=== PATIENT | male | born 1990 | race Caucasian/White ===

== ENCOUNTER 2019-11-23 19:08 | Emergency (ER) | payer OTHER ==
[~2019-11-23] VITALS: Ht 177.8 cm; Wt 78.3 kg
--- NOTE | 2019-11-23 19:14 | PHYS DOC ---
Adult General Chief Complaint Chief Complaint: NOSEBLEED.." I got elbow into my nose about 5 hrs ago... and a nose bleed....they made me come and get checked out..." HPI HPI Patient is a 29 year old male [employer] inmate who presents with above hx and complaints of epistaxis. Patient denies any loss of consciousness. Patient states bleeding has been relatively stable. Patient denies any history coagulopathy. Patient denies any history immunosuppression. Patient states urinary nose that is broken. Declines x-rays. Patient declines CT. Patient states he only came because [facility] staff told him he must be evaluated. Review of Systems Review of Systems Constitutional: Denies fever or chills [] Eyes: Denies change in visual acuity, redness, or eye pain [] HENT: Complains of nasal fracture and nasal congestion right black eye Respiratory: Denies cough or shortness of breath [] Cardiovascular: No additional information not addressed in HPI [] GI: Denies abdominal pain, nausea, vomiting, bloody stools or diarrhea [] : Denies dysuria or hematuria [] Musculoskeletal: Denies back pain or joint pain [] Integument: Denies rash or skin lesions [] Neurologic: Denies headache, focal weakness or sensory changes [] Endocrine: Denies polyuria or polydipsia [] All other systems were reviewed and found to be within normal limits, except as documented in this note. Family History Family History Noncontributory Current Medications Current Medications See nursing for home meds Allergies Allergies No known drug allergies Physical Exam Physical Exam Constitutional: Well developed, well nourished, no acute distress, non-toxic appearance. [] HENT: Normocephalic, appears to have a fractured nose, bilateral external ears normal, oropharynx moist, no oral exudates, nose bleeding is stabilized. No septal hematoma. No bleeding in pharynx Eyes: PERRLA, EOMI, conjunctiva normal, no discharge. []Ecchymosis under right eye Neck: Normal range of motion, no tenderness, supple, no stridor. [] Cardiovascular:Heart rate regular rhythm, no murmur [] Lungs & Thorax: Bilateral breath sounds with apex with few scattered wheezes on auscultation [] Abdomen: Bowel sounds normal, soft, no tenderness, no masses, no pulsatile masses. [] Skin: Warm, dry, no erythema, no rash. [] Back: No tenderness, no CVA tenderness. [] Extremities: No tenderness, no cyanosis, no clubbing, ROM intact, no edema. [] Neurologic: Alert and oriented X 3, normal motor function, normal sensory function, no focal deficits noted. [] Psychologic: Affect normal, judgement normal, mood normal. [] EKG EKG [] Radiology/Procedures Radiology/Procedures Patient declines radiographic evaluation[] Course & Med Decision Making Course & Med Decision Making Pertinent Labs and Imaging studies reviewed. (See chart for details) Patient use ice packs as needed. Patient elevated head. Patient to not take NSAI Ds. Patient to not blow nose. Patient may sniff. Patient may use Afrin 2 sprays at 4 times a day for congestion. May use Afrin with episodes of rebleeding. Patient follow-up primary care. Patient follow-up ENT. Pt. to return if any concerns. Impression: 1. Epistaxis 2. Suspect fractured nose [] Dragon Disclaimer Dragon Disclaimer This electronic medical record was generated, in whole or in part, using a voice recognition dictation system. Departure Departure: Disposition: 01 HOME/RESIDENCE PRIOR TO ADM Condition: STABLE Referrals: PCP,NO (PCP) Toby Disclaimer This chart was dictated in whole or in part using Voice Recognition software in a busy, high-work load, and often noisy Emergency Department environment. It may contain unintended and wholly unrecognized errors or omissions. IDANIA BOWDEN MD Nov 23, 2019 19:14
[2019-11-23] MEDS ORDERED: BACITRACIN ZINC TOPICAL OINT PACKET. TP ONE (19:15)
[2019-11-23] MEDS ORDERED: PHENYLEPHRINE 1% NASAL DROP 30ML BOTTLE. NS ONE (19:15)
[2019-11-23] MEDS ORDERED: COCAINE 4% TOPICAL SOLUTION. TP ONE (19:15)
[2019-11-23 19:23] VITALS: BP 131/92
== END 2019-11-23 20:22 | disposition home or self-care (01) ==
LOC: ER 19:08
DX: S00.11XA Contusion of right eyelid and periocular area, initial encounter (principal); R04.0 Epistaxis; W51.XXXA Accidental striking against or bumped into by another person, initial encounter; Y93.89 Activity, other specified; Y92.89 Other specified places as the place of occurrence of the external cause; Y99.8 Other external cause status
CPT/HCPCS: 99284

== ENCOUNTER 2020-02-15 12:19 | Emergency (ER) | payer OTHER ==
[~2020-02-15] VITALS: Ht 177.8 cm; Wt 68.9 kg
[2020-02-15 12:30] VITALS: BP 131/89
--- NOTE | 2020-02-15 12:43 | PHYS DOC ---
Past History Past Medical History: No Pertinent History Past Surgical History: No Surgical History Alcohol Use: None General Adult EDM: Chief Complaint: EYE PROBLEMS HPI: HPI: 29-year-old male presents with right eye irritation and redness. The patient did not even notice. He woke up and everything felt fine. He did not have any discharge. He was at work today and someone else noticed that his eye was red. They were concerned about it so they sent him here to be evaluated. He denies foreign body. He does not have a foreign body sensation. It does not itch. His left eye is normal. Review of Systems: Review of Systems: Constitutional: Denies fever or chills Eyes: Redness of the right conjunctiva HENT: Denies nasal congestion or sore throat Respiratory: Denies cough or shortness of breath Cardiovascular: Denies chest pain or edema GI: Denies abdominal pain, nausea, vomiting, bloody stools or diarrhea : Denies dysuria Musculoskeletal: Denies back pain or joint pain Integument: Denies rash Neurologic: Denies headache, focal weakness or sensory changes Endocrine: Denies polyuria or polydipsia Lymphatic: Denies swollen glands Psychiatric: Denies depression or anxiety Heart Score: Risk Factors: Risk Factors: DM, Current or recent (<one month) smoker, HTN, HLP, family history of CAD, obesity. Risk Scores: Score 0 - 3: 2.5% MACE over next 6 weeks - Discharge Home Score 4 - 6: 20.3% MACE over next 6 weeks - Admit for Clinical Observation Score 7 - 10: 72.7% MACE over next 6 weeks - Early Invasive Strategies Allergies: Allergies: Allergies Coded Allergies Type Severity Reaction Last Updated Verified No Known Drug Allergies 11/23/19 No Physical Exam: PE: Constitutional: Well developed, well nourished, no acute distress, non-toxic appearance. [] HENT: Normocephalic, atraumatic, bilateral external ears normal, oropharynx moist, no oral exudates, nose normal. [] Eyes: PERRLA, EOMI, conjunctiva erythematous on right, normal left, no di scharge. [] Neck: Normal range of motion, no tenderness, supple, no stridor. [] Cardiovascular:Heart rate regular rhythm, no murmur [] Lungs & Thorax: Bilateral breath sounds clear to auscultation [] Abdomen: Bowel sounds normal, soft, no tenderness, no masses, no pulsatile masses. [] Skin: Warm, dry, no erythema, no rash. [] Back: No tenderness, no CVA tenderness. [] Extremities: No tenderness, no cyanosis, no clubbing, ROM intact, no edema. [] Neurologic: Alert and oriented X 3, normal motor function, normal sensory function, no focal deficits noted. [] Psychologic: Affect normal, judgement normal, mood normal. [] EKG: EKG: [] Radiology/Procedures: Radiology/Procedures: [] Course & Med Decision Making: Course & Med Decision Making Pertinent Labs and Imaging studies reviewed. (See chart for details) The patient's eye appears to be consistent with either allergic conjunctivitis or viral conjunctivitis. He has no significant discharge. I do not believe he needs to stay away from work. I will give him a note to return to work today. The patient wants to go to work. I have advised him on conservative care and being diligent about not spreading into the other eye. We also discussed concerning signs of bacterial conjunctivitis. If his condition worsens he will come back to the ER. He is stable for discharge at this time. [] Dragon Disclaimer: Dragon Disclaimer: This electronic medical record was generated, in whole or in part, using a voice recognition dictation system. Departure Departure: Impression: Primary Impression: Viral conjunctivitis, right eye Disposition: HOME/RESIDENCE PRIOR TO ADM Condition: STABLE Referrals: PCP,NO (PCP) Patient Instructions: Conjunctivitis (Viral and Bacterial) Justification of Admission: Justification of Admission: Justification of Admission Dx: N/A NANCY LAINEZ DO Feb 15, 2020 12:43
== END 2020-02-15 13:20 | disposition home or self-care (01) ==
LOC: ER 12:19
DX: B30.9 Viral conjunctivitis, unspecified (principal)
CPT/HCPCS: 99282